=== PATIENT | male | born 1985 | race Caucasian/White ===

== ENCOUNTER 2017-06-26 17:38 | Emergency (ER) | payer SELFPAY ==
[~2017-06-26] VITALS: Ht 167.6 cm; Wt 116.6 kg
[2017-06-26 19:03] VITALS: BP 149/103
== END 2017-06-26 19:03 | disposition home or self-care (01) ==
LOC: ED 17:38
DX: R03.0 Elevated blood-pressure reading, without diagnosis of hypertension (principal); E66.9 Obesity, unspecified